=== PATIENT | female | born 1980 | race Caucasian/White ===

== ENCOUNTER 2021-06-19 09:33 | Emergency (ER) | payer OTHER ==
[~2021-06-19] VITALS: Ht 167.6 cm; Wt 104.3 kg
[2021-06-19 11:06] VITALS: BP 156/100
== END 2021-06-19 11:08 | disposition home or self-care (01) ==
LOC: M.ERS 09:33
DX: G56.21 Lesion of ulnar nerve, right upper limb (principal); M54.6 Pain in thoracic spine; V89.2XXA Person injured in unspecified motor-vehicle accident, traffic, initial encounter; Y93.I9 Activity, other involving external motion; Y92.488 Other paved roadways as the place of occurrence of the external cause; Y99.8 Other external cause status